=== PATIENT | male | born 1945 | race African-American/Black ===

== ENCOUNTER 2016-12-01 12:58 | Day surgery (SDC) | payer OTHER ==
[2016-12-01 13:14] VITALS: BMI 28.8
--- NOTE | 2016-12-01 14:36 | PDOC ---
History of Present Illness - General History Source: Patient, Primary Care Provider Exam Limitations: No Limitations - History of Present Illness Initial Comments: 12/01/16 15:02 The patient is a 71 year old male, with a significant past medical history of HTN, urethral dilation and kidney stones, who presents to the emergency department after being sent by his PMD for pre-op kidney stone surgery. Dr. Mireles sent the patient to the ED and is set to have surgery at 5pm today. He reports that he had a urethral stricture in the past, roughly 4 years ago. The patient denies chest pain, shortness of breath, headache and dizziness. Denies fever, chills, nausea, vomit, diarrhea and constipation. Denies dysuria, frequency, urgency and hematuria. Allergies: None Past surgical history: None reported Social history: No alcohol, tobacco or drug use reported Urology - Dr. Tenzin Mireles <Calixto Valdez - Last Filed: 12/01/16 15:30> - General History Source: Patient Exam Limitations: No Limitations <Nidia Marques - Last Filed: 12/05/16 07:02> - General Chief Complaint: Pain Stated Complaint: pre op LAB VARIANCE (PCP SENT) Time Seen by Provider: 12/01/16 13:49 Past History <Calixto Valdez - Last Filed: 12/01/16 15:30> - Past Medical History Anemia: No Asthma: No Cancer: No Cardiac Disorders: No CVA: No COPD: No CHF: No Dementia: No Diabetes: No GI Disorders: No Disorders: No HTN: Yes (borderlines) Hypercholesterolemia: No Kidney Stones: Yes Liver Disease: No Seizures: No Thyroid Disease: No - Surgical History Abdominal Surgery: No Appendectomy: No Cardiac Surgery: No Cholecystectomy: No Lung Surgery: No Neurologic Surgery: No Orthopedic Surgery: No - Psycho/Social/Smoking Cessation Hx Anxiety: No Suicidal Ideation: No Smoking History: Never smoked Have you smoked in the past 12 months: No Information on smoking cessation initiated: No Hx Alcohol Use: No Drug/Substance Use Hx: No Substance Use Type: None <Nidia Marques - Last Filed: 12/05/16 07:02> - Past Medical History Allergies/Adverse Reactions: Allergies Allergy/AdvReac Type Severity Reaction Status Date / Time No Known Allergies Allergy Verified 12/01/16 13:03 Home Medications: Ambulatory Orders Amlodipine Besylate 5 mg PO DAILY 02/02/12 Amox-Tr/K Cl [Augmentin 875-125mg Tablet -] 1 tab PO BID #14 tablet 12/01/16 Multivitamin [Poly-Vitamin] 1 each PO DAILY 12/01/16 Oxycodone HCl/Acetaminophen [Percocet 5-325 mg Tablet -] 1 tab PO Q4H #20 tablet MDD 6 12/01/16 Review of Systems - Review of Systems Able to Perform ROS?: Yes Comments:: 12/01/16 15:02 GENERAL/CONSTITUTIONAL: No fever or chills. No weakness. HEAD, EYES, EARS, NOSE AND THROAT: No change in vision. No ear pain or discharge. No sore throat. CARDIOVASCULAR: No chest pain or shortness of breath RESPIRATORY: No cough, wheezing, or hemoptysis. GASTROINTESTINAL: No nausea, vomiting, diarrhea or constipation. GENITOURINARY: No dysuria, frequency, or change in urination. MUSCULOSKELETAL: No joint or muscle swelling or pain. No neck or back pain. SKIN: No rash NEUROLOGIC: No headache, vertigo, loss of consciousness, or change in strength/ sensation. ENDOCRINE: No increased thirst. No abnormal weight change HEMATOLOGIC/LYMPHATIC: No anemia, easy bleeding, or history of blood clots. ALLERGIC/IMMUNOLOGIC: No hives or skin allergy. <Calixto Valdez - Last Filed: 12/01/16 15:30> *Physical Exam - Vital Signs Last Vital Signs Temp Pulse Resp BP Pulse Ox 97.8 F 75 18 159/89 100 12/01/16 13:07 12/01/16 13:07 12/01/16 13:07 12/01/16 13:07 12/01/16 13:07 - Physical Exam Comments: 12/01/16 15:02 GENERAL: Awake, alert, and fully oriented, in no acute distress HEAD: No signs of trauma, normocephalic, atraumatic EYES: PERRLA, EOMI, sclera anicteric, conjunctiva clear ENT: Auricles normal inspection, hearing grossly normal, nares patent, oropharynx clear without exudates. Moist mucosa NECK: Normal ROM, supple, no lymphadenopathy, JVD, or masses LUNGS: No distress, speaks full sentences, clear to auscultation bilaterally HEART: Regular rate and rhythm, normal S1 and S2, no murmurs, rubs or gallops, peripheral pulses normal and equal bilaterally. ABDOMEN: Soft, nontender, normoactive bowel sounds. No guarding, no rebound. No masses EXTREMITIES: Normal inspection, Normal range of motion, no edema. No clubbing or cyanosis. NEUROLOGICAL: Cranial nerves II through XII grossly intact. Normal speech, normal gait, no focal sensorimotor deficits SKIN: Warm, Dry, normal turgor, no rashes or lesions noted. <Calixto Valdez - Last Filed: 12/01/16 15:30> - Vital Signs Last Vital Signs Temp Pulse Resp BP Pulse Ox 97.8 F 75 18 159/89 100 12/01/16 13:07 12/01/16 13:07 12/01/16 13:07 12/01/16 13:07 12/01/16 13:07 <Nidia Marques - Last Filed: 12/05/16 07:02> Heart Score/ECG Review #1 ECG reviewed & interpreted by me at: 16:33 12/01/16 16:33 Twelve-lead EKG was performed and reviewed by me. There is normal sinus rhythm with a normal rate of 72 bpm. Left axis deviation. The intervals are normal - pr :216ms (prolonged), QRS:106ms, QTc:433ms. There are no ST or T wave abnormalities. (+) LVH <Nidia Marques - Last Filed: 12/05/16 07:02> ED Treatment Course - LABORATORY CBC & Chemistry Diagram: 12/01/16 14:51 12/01/16 14:51 - RADIOLOGY Radiograph Interpretation: 12/01/16 15:30 Chest X-Ray Reviewed by: Dr. Reinaldo Golden Impression: No evidence of active pulmonary disease. <Calixto Valdez - Last Filed: 12/01/16 15:30> - LABORATORY CBC & Chemistry Diagram: 12/01/16 14:51 12/01/16 14:51 <Nidia Marques - Last Filed: 12/05/16 07:02> Medical Decision Making - Medical Decision Making 12/01/16 15:03 Dr. Casillas was consulted regarding the patient at 2:11pm. <Calixto Valdez - Last Filed: 12/01/16 15:30> - Medical Decision Making 12/01/16 14:27 A portion of this note was documented by scribe services under my direction. I have reviewed the details of the note, within reason, and agree with the documentation with the following case summary and management plan written by me. Nursing documentation reviewed and incorporated into medical decision making 12/01/16 14:36 12/01/16 14:37 This is a generally healthy 71-year-old male who presents emergency department from his urologist office for preop management. Patient was seen in his urologist office for dilation of his urethra. The procedure was technically difficult and patient was sent to the hospital for an operative procedure. Patient has no complaints at this time. Will do labs, EKG, chest x-ray. I have contacted Eula Martinez to clarify that the plan for this patient indeed is surgery at 5 PM. I was contacted by Dr. Leyva who confirms. Will do pre op labs Will send to [facility] for 5pm procedure <Nidia Marques - Last Filed: 12/05/16 07:02> *DC/Admit/Observation/Transfer - Attestations Scribe Attestion: 12/01/16 15:02 Documentation prepared by Calixto Valdez, acting as medical device for Nidia Marques MD <Calixto Valdez - Last Filed: 12/01/16 15:30> - Discharge Dispostion Admit: Yes <Nidia Marques - Last Filed: 12/05/16 07:02> Diagnosis at time of Disposition: Urethral stricture Qualifiers: Urethral stricture type: other stricture Qualified Code(s): N35.8 - Other urethral stricture - Discharge Dispostion Disposition: HOME Condition at time of disposition: Stable - Prescriptions - Referrals
[2016-12-01 15:13] LABS: EOSINOPHIL 1.1 % (0-4.5); MCH 30.9 pg (25.7-33.7); MCHC 33.3 g/dl (32.0-35.9); MEAN CELL VOLUME 92.8 fl (80-96); MEAN PLT VOLUME 8.3 fl (7.5-11.1); NEUTROPHILS 60.9 % (42.8-82.8); PLATELET COUNT 191 K/MM3 (134-434); RDW 12.6 % (11.9-15.9); WHITE BLOOD COUNT 6.5 K/mm3 (4.0-10.0)
[2016-12-01 15:33] LABS: INR 1.08 (0.82-1.09); PROTHROMBIN TIME (PATIENT) 11.9 SEC (9.98-11.88)
[2016-12-01 15:34] LABS: ALBUMIN 4.1 g/dl (3.4-5.0); BILIRUBIN,TOTAL 0.6 mg/dL (0.2-1.0); CALCIUM 8.9 mg/dL (8.5-10.1); CREATININE 1.2 mg/dL (0.7-1.3); TOT PROT 7.4 g/dl (6.4-8.2)
[2016-12-01] MEDS ORDERED: IBUPROFEN 800 MG/8 ML IJ IVPB PRN (17:52)
--- NOTE | 2016-12-01 17:52 | HP ---
[facility] - Chief Complaint Chief Complaint: urethral stricture History of Present Illness: 71 year old male with a history of recurrent bulbar urethral stricture presents with decreased stream. 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: Alzheimer's, CVA, Dementia, Migraine, Multiple Sclerosis, Peripheral Neuropathy, Parkinson's, Seizure, Syncope, TIA, Vertigo, Other Cardiovascular: No: AFIB, Aneurysm, Aortic Insufficiency, Aortic Stenosis, CAD, CHF, Deep Vein Thrombosis, HTN, Hyperlipdemia, VT, Mitral Insufficiency, Mitral Stenosis, Murmur, Pulmonary Hypertension, Other Pulmonary: No: Asthma, Bronchitis, Cancer, COPD, O2 Dependent, Pneumonia, Previously Intubated, Pulmonary Embolus, Pulmonary Fibrosis, Sleep Apnea, Other Gastrointestinal: No: Ascites, Cancer, Constipation, Crohn's Disease, Diverticulitis, Diverticulosis, Esophageal Varices, Gastritis, GERD, GI Bleed, Hemorrhoids, Hiatal Hernia, Inflamatory Bowel Disease, Irritable Bowel Disease, Pancreatitis, Peptic Ulcer Disease, Ulcerative Colitis, Other Renal/: Yes: Other (urethral stricture) Heme/Onc: No: Anemia, B12 Deficiency, Bleeding Disorder, Cancer, Current Chemotherapy, Current Radiation Therapy, Hemochromatosis, Hypercoaguable State, Myeloproliferative Synd, Sickle Cell Disease, Sickle Cell Trait, Thrombocytopenia, Other Infectious Disease: No: AIDS, C-Diff, Herpes Zoster, HIV, MRSA, STD's, Tuberculosis, VREF, Other Musculoskeletal: No: Bursitis, Chronic low back pain, Hemiparesis, Hemiplegia, Osteoarthritis, Paraplegia, Other - Current Medications Current Medications: Home Medications Medication Instructions Recorded Amlodipine Besylate 5 mg PO DAILY 02/02/12 Multivitamin [Poly-Vitamin] 1 each PO DAILY 12/01/16 Satellite Physical Exam - Physical Examination Vital Signs: Vital Signs Period Temp Pulse Resp BP Sys/Yang Pulse Ox Last 24 Hr 97.8 F 74-75 18-18 159-161/89-95 94-100 General Appearance: Well Nourished, Well Developed, Alert & Oriented x3 ENT: Clear, No Discharge, No masses Lung: Clear to auscultation Heart: Regular rate & rhythm, Normal S1, Normal S2 Abdomen: Soft, No tenderness, No CVA, Other (bladder palpable) Neurological: Intact, Alert, Oriented Satellite Impression/Plan - Impression/Plan Impression: bulbar urethral stricture, urinary retention Operative Procedure: cysto, internal urethrotomy, possible suprapubic tube Date to be Performed: 12/01/16
[2016-12-01] MEDS ORDERED: DEXTROSE 5%-0.45% SALINE 1,000 ML IV SCH (18:00)
[2016-12-01] MEDS ORDERED: ONDANSETRON 4 MG/2 ML VIAL IVPUSH PRN (18:05)
[2016-12-01] MEDS ORDERED: MIDAZOLAM HCL 2 MG/2 ML SINGLE DOSE VIAL ONE (18:07)
[2016-12-01] MEDS ORDERED: PROPOFOL 20 ML ONE (18:07)
[2016-12-01] MEDS ORDERED: ACETAMINOPHEN 1000 MG/100 ML VIAL (NON FORMULARY) IVPB ONE (18:10)
[2016-12-01] MEDS ORDERED: ceFAZolin SODIUM 1 GM VIAL IVPB ONE (18:15)
[2016-12-01] MEDS ORDERED: LACTATED RINGERS SOLUTION 1,000 ML IV SCH (18:15)
[2016-12-01] MEDS ORDERED: ceFAZolin SODIUM 1 GM VIAL ONE (18:16)
--- NOTE | 2016-12-01 19:00 | OP ---
Operative Note - Note: Operative Date: 12/01/16 Pre-Operative Diagnosis: bulbar urethral stricture, urinary retention Operation: cystoscopy, dilation of urethral stricture Findings: bulbar urethral stricture Post-Operative Diagnosis: Same as Pre-op Surgeon: Tenzin Mireles Anesthesia: General Estimated Blood Loss (mls): 5
[2016-12-01] MEDS ORDERED: ACETAMINOPHEN INJECTION 100 ML IVPB ONE (20:45)
[2016-12-01 21:11] VITALS: BP 141/90; PULSE 64; TEMP 97.6
--- NOTE | 2016-12-01 21:23 | EKG ---
Test Reason : Blood Pressure : / mmHG Vent. Rate : 072 BPM Atrial Rate : 072 BPM P-R Int : 216 ms QRS Dur : 106 ms QT Int : 396 ms P-R-T Axes : 027 -34 054 degrees QTc Int : 433 ms SINUS RHYTHM WITH 1ST DEGREE A-V BLOCK LEFT AXIS DEVIATION MODERATE VOLTAGE CRITERIA FOR LVH, MAY BE NORMAL VARIANT ABNORMAL ECG NO PREVIOUS ECGS AVAILABLE Confirmed by JESIKA MERCADO MD ([id number]) on 12/01/2016 9:22:53 PM Referred By: Confirmed By:JESIKA MERCADO MD
--- NOTE | 2016-12-01 21:46 | OP ---
DATE OF OPERATION: 12/01/2016 PREOPERATIVE DIAGNOSIS: Urethral stricture, urinary retention. POSTOPERATIVE DIAGNOSIS: Urethral stricture, urinary retention. PROCEDURE: Cystoscopy, dilation of bulbar urethral stricture, and placement of Lopez catheter. ANESTHESIA: General. FINDINGS: A dense bulbar urethral stricture. CATHETER: An 18-[place] Lopez. ESTIMATED BLOOD LOSS: Minimal. SURGEON: Tenzin Mireles MD PREOPERATIVE INDICATIONS: The patient is a 71-year-old male with a history of recurrent bulbar urethral strictures. He came in today with difficulty urinating and was found to have a very dense bulbar urethral stricture. He comes to the OR. OPERATION: The patient was brought to the OR, placed in the table in supine position, given general anesthesia and IV antibiotics. Time-out was performed. The groin was prepped and draped sterilely. Cystoscopy was passed into the urethra. A wire was passed through the true lumen, which was a small stenotic lumen toward the anterior aspect of the urethra. The urethrotome was not available so the stricture was serially dilated until the 22-[place] cystoscope could be passed easily through the stricture. This was then passed into the bladder. The prostate was enlarged but not obstructive. The bladder had some trabeculations. No tumors or stones were seen. Some bleeding was seen. The scope was removed, and over the wire, an 18-[place] Councill tip catheter was passed into the bladder, which irrigated well. The patient was then woken up. TENZIN MIRELES M.D. [id number]
== END 2016-12-01 22:25 | disposition home or self-care (01) ==
LOC: JER 12:58 → JASUSAT 15:15 → J8W 17:05 → JASUSAT 22:25
PROVIDERS: ATTEND Urology
PROC: 0T9B70Z Drainage of Bladder with Drainage Device, Via Natural or Artificial Opening (ICD-10-PCS; 2016-12-01)
PROC: 0T7D8ZZ Dilation of Urethra, Via Natural or Artificial Opening Endoscopic (ICD-10-PCS; principal; 2016-12-01 17:00)
DX: N35.9 Urethral stricture, unspecified (principal)
CPT/HCPCS: 36415; 71010-TC; 80053; 85025; 85610; 86850; 86900; 86901; 93005; 93010; 94760; 99284-25

== ENCOUNTER 2020-10-12 15:28 | Inpatient (IN) | payer OTHER ==
[2020-10-12 16:43] LABS: BASO % 0.4 % (0-2.0); EOS % 0.7 % (0-4.5); HEMATOCRIT 39.1 % (35.4-49); LYMPH % 9.4 % (8-40); MCH 31.2 pg (25.7-33.7); MCHC 33.3 g/dl (32.0-35.9); MEAN CELL VOLUME 93.5 fl (80-96); MEAN PLT VOLUME 8.8 fl (7.5-11.1); MONO % 9.9 % (3.8-10.2); NEUT % 79.6 % (42.8-82.8); PLATELET COUNT 197 K/MM3 (134-434); RBC 4.18 M/mm3 (4.00-5.60); RDW 13.3 % (11.9-15.9); WHITE BLOOD COUNT 11.4 K/mm3 (4.0-10.0)
[2020-10-12 16:50] LABS: INR 1.07 (0.83-1.09); PROTHROMBIN TIME (PATIENT) 13.1 SEC (9.7-13.0)
[2020-10-12 16:52] LABS: ACTIVATED PTT 28.1 SECONDS (25.2-36.5)
[2020-10-12 17:04] LABS: ALBUMIN 3.6 g/dl (3.4-5.0); CALCIUM 9.1 mg/dL (8.5-10.1)
[2020-10-12 17:05] LABS: BLOOD UREA NITROGEN 71.8 mg/dL (7-18)
[2020-10-12 17:08] LABS: CREATININE 6.9 mg/dL (0.55-1.3)
[2020-10-12 17:09] LABS: BILIRUBIN,TOTAL 0.8 mg/dL (0.2-1); TOT PROT 7.5 g/dl (6.4-8.2)
[2020-10-12] MEDS ORDERED: ceFAZolin SODIUM 1 GM VIAL IVPB ONE (20:26)
[2020-10-12] MEDS ORDERED: LACTATED RINGERS SOLUTION 1,000 ML IV SCH (21:15)
[2020-10-12 23:40] VITALS: BMI 28.8
[2020-10-13] MEDS ORDERED: ACETAMINOPHEN 325 MG TABLET (FP) PO PRN (01:56)
[2020-10-13] MEDS: HEPARIN NA (PORCINE) 5,000 UNITS/ML 1ML VIAL SQ SCH ×3 (06:55→21:52)
[2020-10-13 09:20] LABS: BASO % 0.7 % (0-2.0); EOS % 1.1 % (0-4.5); HEMATOCRIT 35.6 % (35.4-49); LYMPH % 8.1 % (8-40); MCH 31.5 pg (25.7-33.7); MCHC 33.6 g/dl (32.0-35.9); MEAN CELL VOLUME 93.6 fl (80-96); MEAN PLT VOLUME 8.5 fl (7.5-11.1); MONO % 10.3 % (3.8-10.2); NEUT % 79.8 % (42.8-82.8); PLATELET COUNT 210 K/MM3 (134-434); RDW 13.1 % (11.9-15.9); WHITE BLOOD COUNT 14.9 K/mm3 (4.0-10.0)
[2020-10-13 09:30] LABS: CALCIUM 8.5 mg/dL (8.5-10.1)
[2020-10-13 09:31] LABS: ALBUMIN 2.9 g/dl (3.4-5.0); BLOOD UREA NITROGEN 71.8 mg/dL (7-18); MAGNESIUM 2.5 mg/dL (1.8-2.4)
[2020-10-13 09:33] LABS: CREATININE 5.6 mg/dL (0.55-1.3); PHOSPHOROUS 4.8 mg/dL (2.5-4.9)
[2020-10-13 09:35] LABS: BILIRUBIN,TOTAL 1.4 mg/dL (0.2-1); TOT PROT 6.3 g/dl (6.4-8.2)
[2020-10-13] MEDS ORDERED: SODIUM CHLORIDE 1,000 ML IV STA (10:19)
[2020-10-13] MEDS ORDERED: DEXTROSE 5%-WATER - 50 ML IVPB ONE (11:24)
[2020-10-13] MEDS ORDERED: cefTRIAXone SODIUM 1 GM VIAL ONE (11:24)
[2020-10-13] MEDS: CEFTRIAXONE 1 GM in DEXTROSE 5%-WATER - 50 ML IVPB SCH (13:17)
[2020-10-13] MEDS: SODIUM CHLORIDE 0.45% 1,000 ML IV SCH (15:07)
[2020-10-13 16:44] LABS: BLOOD UREA NITROGEN 66.2 mg/dL (7-18); CALCIUM 8.2 mg/dL (8.5-10.1)
[2020-10-13 16:48] LABS: CREATININE 4.9 mg/dL (0.55-1.3)
[2020-10-14] MEDS: HEPARIN NA (PORCINE) 5,000 UNITS/ML 1ML VIAL SQ SCH ×3 (06:17→21:43)
[2020-10-14] MEDS ORDERED: DEXTROSE 5%-WATER - 50 ML IVPB ONE (08:45)
[2020-10-14] MEDS ORDERED: cefTRIAXone SODIUM 1 GM VIAL ONE (08:45)
[2020-10-14] MEDS: CEFTRIAXONE 1 GM in DEXTROSE 5%-WATER - 50 ML IVPB SCH (09:33)
[2020-10-14 10:08] LABS: CALCIUM 8.4 mg/dL (8.5-10.1)
[2020-10-14 10:09] LABS: BLOOD UREA NITROGEN 56.1 mg/dL (7-18); MAGNESIUM 2.2 mg/dL (1.8-2.4)
[2020-10-14 10:12] LABS: CREATININE 3.1 mg/dL (0.55-1.3); PHOSPHOROUS 3.7 mg/dL (2.5-4.9)
[2020-10-14] MEDS: SODIUM CHLORIDE 0.45% 1,000 ML IV SCH (13:08)
[2020-10-15] MEDS: HEPARIN NA (PORCINE) 5,000 UNITS/ML 1ML VIAL SQ SCH ×3 (06:50→21:20)
[2020-10-15 08:27] LABS: CALCIUM 8.5 mg/dL (8.5-10.1)
[2020-10-15 08:28] LABS: BLOOD UREA NITROGEN 36.9 mg/dL (7-18)
[2020-10-15 08:31] LABS: CREATININE 2.2 mg/dL (0.55-1.3)
[2020-10-15 09:48] LABS: EPI CELLS >36 /uL (0-25.1); HYALINE CASTS 3 /uL (0-3.1); URINE APPEARANCE Error; URINE BACTERIA 53 /uL (0-1359); URINE BILIRUBIN NEGATIVE (NEGATIVE); URINE COLOR YELLOW; URINE GLUCOSE (UA) NEGATIVE (NEGATIVE); URINE KETONE NEGATIVE (NEGATIVE); URINE LEUK ESTERASE 2+ (NEGATIVE); URINE NITRITE NEGATIVE (NEGATIVE); URINE PROTEIN 1+ (NEGATIVE); URINE RBC 171 /uL (0-23.9); URINE UROBILINOGEN 0.2 mg/dL (0.2-1.0); URINE WBC 152 /uL (0-25.8)
[2020-10-15] MEDS ORDERED: DEXTROSE 5%-WATER - 50 ML IVPB ONE (10:21)
[2020-10-15] MEDS ORDERED: cefTRIAXone SODIUM 1 GM VIAL ONE (10:21)
[2020-10-15] MEDS: CEFTRIAXONE 1 GM in DEXTROSE 5%-WATER - 50 ML IVPB SCH (11:24)
[2020-10-15 13:29] LABS: ALBUMIN 2.8 g/dl (3.4-5.0); MAGNESIUM 1.8 mg/dL (1.8-2.4)
[2020-10-15 13:34] LABS: BILIRUBIN,TOTAL 0.7 mg/dL (0.2-1)
[2020-10-15 13:35] LABS: TOT PROT 6.3 g/dl (6.4-8.2)
[2020-10-15] MEDS ORDERED: SODIUM CHLORIDE 0.45% 1,000 ML IV SCH (15:55)
[2020-10-16] MEDS: HEPARIN NA (PORCINE) 5,000 UNITS/ML 1ML VIAL SQ SCH ×2 (05:03→13:54)
[2020-10-16 09:02] LABS: EOS % 3.4 % (0-4.5); HEMATOCRIT 35.4 % (35.4-49); HEMOGLOBIN 11.9 GM/dL (11.7-16.9); LYMPH % 27.9 % (8-40); MCH 31.6 pg (25.7-33.7); MCHC 33.6 g/dl (32.0-35.9); MEAN CELL VOLUME 94.1 fl (80-96); MEAN PLT VOLUME 7.8 fl (7.5-11.1); MONO % 11.7 % (3.8-10.2); PLATELET COUNT 290 K/MM3 (134-434); RBC 3.76 M/mm3 (4.00-5.60); RDW 13.5 % (11.9-15.9); WHITE BLOOD COUNT 8.7 K/mm3 (4.0-10.0)
[2020-10-16 09:18] LABS: CALCIUM 8.8 mg/dL (8.5-10.1)
[2020-10-16 09:19] LABS: ALBUMIN 2.9 g/dl (3.4-5.0); BLOOD UREA NITROGEN 25.2 mg/dL (7-18); MAGNESIUM 1.8 mg/dL (1.8-2.4)
[2020-10-16 09:22] LABS: CREATININE 1.7 mg/dL (0.55-1.3)
[2020-10-16 09:23] LABS: BILIRUBIN,TOTAL 0.7 mg/dL (0.2-1)
[2020-10-16 09:24] LABS: TOT PROT 6.8 g/dl (6.4-8.2)
[2020-10-16] MEDS ORDERED: DEXTROSE 5%-WATER - 50 ML IVPB ONE (09:54)
[2020-10-16] MEDS ORDERED: cefTRIAXone SODIUM 1 GM VIAL ONE (09:54)
[2020-10-16] MEDS: CEFTRIAXONE 1 GM in DEXTROSE 5%-WATER - 50 ML IVPB SCH (09:55)
[2020-10-16 11:23] VITALS: BP 155/86; PULSE 75; TEMP 97.8
[2020-10-16] MEDS ORDERED: CEFUROXIME AXETIL 500 MG TABLET PO SCH (22:00)
== END 2020-10-16 16:13 | disposition home or self-care (01) | DRG 697 ==
LOC: JER 15:28 → JERBED 20:02 → J6S 21:52
PROVIDERS: ADMIT Internal Medicine; ATTEND Nurse Practitioner Family
PROC: 0T7D8ZZ Dilation of Urethra, Via Natural or Artificial Opening Endoscopic (ICD-10-PCS; principal; 2020-10-12)
DX: N35.912 Unspecified bulbous urethral stricture, male (principal); N17.9 Acute kidney failure, unspecified; E87.1 Hypo-osmolality and hyponatremia; N39.0 Urinary tract infection, site not specified; R33.9 Retention of urine, unspecified; N32.89 Other specified disorders of bladder; N13.9 Obstructive and reflux uropathy, unspecified
CPT/HCPCS: 36415; 71045-TC-FY; 76775-TC; 76856-TC; 80048; 80053; 81003; 82565; 82962; 83735; 84100; 84300; 85025; 85610; 85730; 86850; 86900; 86901; 87086; 87186; 93005; 93010; 94760; 99285-25; C9803; U0003